=== PATIENT | female | born 1950 | race American Indian/Alaskan Native ===

== ENCOUNTER 2018-10-31 10:31 | Day surgery (SDC) | payer MEDICARE ==
[2018-10-24 09:24] VITALS: BMI 26.2
[2018-10-31 11:04] LABS: BASO # 0.02 K/mm3 (0.0-2.0); BASO % 0.3 % (0.0-3.0); EOS # 0.1 (0.0-0.7); HEMOGLOBIN 12.5 g/dL (12.0-16.0); LYMPH # 2.7 (1.2-3.4); LYMPH % 44.9 % (22.0-35.0); MEAN CELL VOLUME 91.9 fl (80.0-105.0); MEAN CORPUSCULAR HEMOGLOBIN 29.7 pg (25.0-35.0); MEAN CORPUSCULAR HGB CONC 32.3 g/dl (31.0-37.0); MEAN PLATELET VOLUME 10.7 fl (7.0-11.0); MONO # 0.4 (0.1-0.6); MONO % 7.2 % (1.0-6.0); RBC 4.21 10^6/uL (3.5-6.1); WHITE BLOOD COUNT 5.9 10^3/uL (4.5-11.0)
[2018-10-31 11:08] LABS: BLOOD UREA NITROGEN 15 mg/dL (7-21); CALCIUM 9.1 mg/dL (8.4-10.5); GFR NON-AFRICAN AMERICAN > 60
[2018-10-31 11:26] LABS: INR 1.07; PARTIAL THROMBOPLASTIN TIME 32.2 Seconds (26.9-38.3); PROTHROMBIN TIME 12.1 SECONDS (9.4-12.5)
[2018-10-31] MEDS ORDERED: Lidocaine 1% Inj (20ml) ONE (13:00)
[2018-10-31] MEDS ORDERED: Midazolam 2 MG/2 ML VIAL ONE (13:00)
[2018-10-31] MEDS ORDERED: Midazolam 2 MG/2 ML VIAL IVP ONE (13:15)
[2018-10-31] MEDS ORDERED: Oxycodone/Acetaminophen 5/325 mg Tab PO PRN (13:31)
[2018-10-31] MEDS ORDERED: Labetalol 5mg/ml (4ml) IV PRN (13:34)
[2018-10-31] MEDS ORDERED: Sodium Chloride 0.45% 1,000 ML IV SCH (13:45)
[2018-10-31] MEDS ORDERED: Labetalol 5mg/ml (4ml) ONE (14:23)
--- NOTE | 2018-10-31 14:34 | US ---
PROCEDURE: Ultrasound-guided right thyroid fine needle aspiration biopsy. CLINICAL HISTORY: Multiple thyroid nodules. Dominant 1.3 cm right nodule. Evaluate for malignancy PHYSICIAN(S): Shaka Robles M.D. TECHNIQUE: The relative risks and indications for the procedure were explained to the patient and consent obtained. The patient was placed supine on the stretcher with the neck extended and preliminary sonography of the thyroid performed. This reveal 1.3 cm dominant heterogeneous hypoechoic nodule in the mid to lower right thyroid. There are multiple smaller nodules and cysts bilaterally. The neck was prepped and draped in the usual sterile fashion. Conscious sedation and monitoring were provided throughout the procedure by a nurse. 1% Xylocaine was used to anesthetize the skin and soft tissues at the access site. Three passes with a 22-gauge needle were performed under ultrasound guidance for fine needle aspiration of the 1.3 cm hypoechoic nodule in the right thyroid. The slides were reviewed by pathology and deemed adequate. The patient tolerated the procedure well. IMPRESSION: 1. Ultrasound guided fine needle aspiration of a 1.3 cm hypoechoic nodule in the right thyroid
[2018-10-31 14:48] VITALS: RESP 20; TEMP 97.9; O2SAT 100
[2018-10-31 15:04] VITALS: BP 154/74; PULSE 76
== END 2018-10-31 15:34 | disposition home or self-care (01) ==
LOC: SDS 10:31
PROVIDERS: ATTEND Radiology Vascular & Interventional Radiology
DX: E04.2 Nontoxic multinodular goiter (principal); E11.9 Type 2 diabetes mellitus without complications; I10 Essential (primary) hypertension
CPT/HCPCS: 10005; 36415; 80048; 85025; 85610; 85730; 88173; 88305; J2250; J2405; J3010; J7030